=== PATIENT | male | born 1950 | race Caucasian/White ===

== ENCOUNTER 2017-03-18 19:33 | Emergency (ER) | payer MEDICARE ==
[~2017-03-18] VITALS: Ht 180.3 cm; Wt 81.6 kg
== END 2017-03-19 00:28 | disposition home or self-care (01) ==
LOC: ED 19:33
DX: T78.3XXA Angioneurotic edema, initial encounter (principal); K13.0 Diseases of lips; Y92.9 Unspecified place or not applicable

== ENCOUNTER 2022-11-17 14:59 | Emergency (ER) | payer MEDICARE ==
[~2022-11-17] VITALS: Ht 177.8 cm; Wt 79.4 kg
[2022-11-17] MEDS ORDERED: ROSUVASTATIN CA10 MG PO (15:21)
[2022-11-17] MEDS ORDERED: AMLODIPINE BESYL5 MG PO (15:21)
[2022-11-17 15:24] LABS: BASO % 0.3 % (0.0-1.0); EOS # 0.2 10*3/uL (0.0-0.4); EOS % 1.2 % (1.0-4.0); HEMATOCRIT 42.8 % (42.0-52.0); LYMPH # 3.3 10*3/uL (1.3-4.4); LYMPH % 26.3 % (27.0-41.0); MEAN CELL VOLUME 94.5 fl (80.0-94.0); MEAN CORPUSCULAR HGB 32.9 pg (27.0-31.0); MEAN CORPUSCULAR HGB CONC 34.8 g/dl (33.0-37.0); MEAN PLATELET VOLUME 10.1 fl (9.6-12.3); MONO # 1.2 10*3/uL (0.1-1.0); MONO % 9.6 % (3.0-9.0); NEUT # 7.7 10*3/uL (2.3-7.9); PLATELET COUNT AUTOMATED 226 10*3/uL (130-400); RED BLOOD COUNT 4.53 10*6/uL (4.50-5.90); RED CELL DISTRI WIDTH 12.6 % (0-14.5); WHITE BLOOD COUNT 12.4 10*3/uL (4.8-10.8)
[2022-11-17 15:34] LABS: ACT PARTIAL THROMBO TIME 29.2 SECONDS (20.0-32.1); INTERNATIONAL NORM RATIO 1.1 (2.0-3.5)
[2022-11-17 15:55] LABS: ALKALINE PHOSPHATASE 84 U/L (46-116); BUN 14 mg/dl (9-23); CHLORIDE 109 mmol/L (98-107); POTASSIUM 3.7 mmol/L (3.4-5.1); SGPT/ALT 8 U/L (10-49); TOTAL PROTEIN 6.5 gm/dL (6.0-8.0)
== END 2022-11-17 15:49 | disposition short-term general hospital (02) ==
LOC: ED 14:59
PROVIDERS: Nurse Practitioner Family
DX: I45.9 Conduction disorder, unspecified (principal); I21.9 Acute myocardial infarction, unspecified; I10 Essential (primary) hypertension; E78.00 Pure hypercholesterolemia, unspecified; Z88.8 Allergy status to other drugs, medicaments and biological substances; Z88.0 Allergy status to penicillin; Z98.890 Other specified postprocedural states